=== PATIENT | male | born 1965 | race Caucasian/White ===

== ENCOUNTER 2017-07-10 10:16 | Day surgery (SDC) | payer BC ==
[~2017-07-10 10:16] MED LIST: ACETAMINOPHEN 1,000 MG/100 ML BTL IV ONE; CEFAZOLIN 2 Gram 2 GM/50 ML BAG IVPB ONE
[2017-07-10] MEDS ORDERED: SEVOFLURANE 250 ML INH ONE (10:17)
[2017-07-10] MEDS ORDERED: PROPOFOL 10 MG/ML VIAL IV ONE (10:17)
[2017-07-10] MEDS ORDERED: MORPHINE SULFATE 4MG/ML PREFILLED SYRINGE IVP ONE (10:17)
[2017-07-10] MEDS ORDERED: LIDOCAINE 2% MDV (20MG/ML) 20ML VIAL IV ONE (10:17)
[2017-07-10] MEDS ORDERED: METHYLPREDNISOLONE 40MG/VIAL IM ONE (10:17)
[2017-07-10] MEDS ORDERED: KETOROLAC 30 MG/ML VIAL IVP ONE (10:17)
[2017-07-10] MEDS ORDERED: BUPIVACAINE 0.5% W/EPI MPF 30 ML VIAL IVP ONE (10:17)
[2017-07-10] MEDS ORDERED: *PACU ONLY* KETAMINE HCL 10 MG/ML (20ML) VIAL IV ONE (10:17)
[2017-07-10] MEDS ORDERED: ENOXAPARIN 40 MG/0.4 ML SYR SQ ONE (10:17)
--- NOTE | 2017-07-12 08:08 | Operative Note ---
DATE: 07/10/2017. PREOPERATIVE DIAGNOSIS: INTERNAL DERANGEMENT OF THE LEFT KNEE. POSTOPERATIVE DIAGNOSES: 1. GRADE 3 CHONDROMALACIA OF THE PATELLA. 2. MODERATE SYNOVITIS. 3. SMALL, GRADE 3 CHONDROMALACIA OF THE MEDIAL FEMORAL CONDYLE. 4. COMPLEX TEAR INVOLVING THE POSTEROLATERAL CORNER OF THE LATERAL MENISCUS. PROCEDURES: 1. Left knee arthroscopy with partial lateral meniscectomy. 2. Left knee arthroscopy with limited synovectomy. 3. Left knee arthroscopy with chondroplasty of the patella and medial femoral condyle. STAFF SURGEON: Jose Tomlinson M.D. ANESTHESIA: General. PREPARATION: ChloraPrep. INDIVIDUAL CONSIDERATIONS: None. PROCEDURE: The patient was taken to the operating room and placed supine on the operating table. He had successful induction of a general anesthetic. His left lower extremity was prepped and draped in the usual fashion. The patient had a superolateral inflow cannula placed. The skin had been infiltrated with 0.5% Marcaine with epinephrine prior. A clear effusion was drained, and the knee was inflated with normal saline. An inferomedial and an inferolateral portal were made in a similar fashion. The arthroscope was introduced through the inferolateral portal up into the pouch. The patellofemoral compartment showed moderate synovitis in the pouch, but not really that much in the gutters. This was debrided out with a shaver. He had grade 3 change throughout the patella which was smoothed. There was some fibrocartilage in the notch. Medially a little grade 3 change was seen in the medial femoral condyle. Otherwise the medial side looked good. In the notch, the cruciates were normal laterally. He had basically a complex flap tear involving the posterolateral horn of the lateral meniscus. This was basically underneath the meniscus which had an unstable flap. This was debrided back to a stable rim with the shaver. The popliteus tendon was normal. The articular cartilage was normal. The knee was then irrigated out with saline to remove loose, floating debris. The portals were closed with jo, and 20 mL of 0.5% Marcaine with epinephrine along with 4.0 mg of morphine and 40 mg of Depo Medrol were injected into the knee. A sterile Bulkee compressive dressing was applied. The patient tolerated the procedure well. Needle and sponge counts were correct. Estimated blood loss was minimal. He was taken back to the Recovery in good condition. There were no complications. Job Number: [id number] MTDD
== END 2017-07-10 13:45 | disposition home or self-care (01) ==
LOC: SUR 10:16
PROVIDERS: ATTEND Orthopaedic Surgery
DX: S83.272A Complex tear of lateral meniscus, current injury, left knee, initial encounter (principal); M22.42 Chondromalacia patellae, left knee; M94.262 Chondromalacia, left knee
CPT/HCPCS: 29881; 01400; J1885; J0690; J2274; J1030; J1650